=== PATIENT | female | born 1955 | race African-American/Black ===

== ENCOUNTER 2017-04-13 00:27 | Inpatient (IN) | payer OTHER, SELFPAY ==
[2017-04-13] MEDS ORDERED: levETIRAcetam In NaCl (Iso-Os) 1,000 MG in Premix Bag 1 BAG IVPB SCH ×2 (01:15)
[2017-04-13 01:32] LABS: Hemoglobin 12.6 g/dL (12.0-16.0); Mean Corpuscular HGB CONC 33.2 g/dL (32.0-36.0); Mean Corpuscular Hemoglobin 30.9 pg (27.0-31.0); Mean Corpuscular Volume 93.2 fl (81.0-99.0); RBC Distribution Width 11.6 % (11.5-14.5); Red Blood Cell (RBC) Count 4.06 mill/uL (4.20-5.40); White Blood Cell (WBC) Count 3.3 thou/uL (4.8-10.8)
[2017-04-13 01:37] LABS: Mean Platelet Volume 10.4 fL (7.4-10.4); Platelet Count 142 thou/uL (130-400)
[2017-04-13 01:40] LABS: Bilirubin Negative (Negative); Blood, Urine Negative (Negative); Clarity CLEAR (Clear); Glucose, Urine (Dipstick) Negative (Negative); Leukocyte Negative (Negative); Nitrite Negative (Negative); Protein, Urine (Dipstick) Negative (Neg-Trace); Specific Gravity, Urine 1.012 (1.002-1.036); Urobilinogen 0.2 mg/dL (0.2-1.0); pH, Urine 7.5 (5.0-9.0)
[2017-04-13 01:46] LABS: ALT (SGPT) 12 U/L (8-55); AST (SGOT) 19 U/L (5-34); Albumin 4.1 g/dL (3.4-4.8); Alkaline Phosphatase 79 U/L (40-150); Anion Gap 13 mmol/L (10-20); BUN (Urea Nitrogen) 14 mg/dL (9.8-20.1); Bilirubin, Total 0.3 mg/dL (0.2-1.2); Calc. Creatinine Clearance 0 mL/min (70-130); Calcium 9.1 mg/dL (7.8-10.44); Carbon Dioxide 25 mmol/L (23-31); Chloride 108 mmol/L (98-107); Estimated GFR-MDRD 62; Globulin 2.8 g/dL (2.4-3.5); Glucose 89 mg/dL (80-115); Potassium 3.9 mmol/L (3.5-5.1); Protein, Total 6.9 g/dL (6.0-8.3); Sodium 142 mmol/L (136-145)
[2017-04-13 01:48] LABS: Acetaminophen Less than 6.0 mcg/mL (10.0-30.0); Alcohol Less than 10 mg/dL (Less than 10); Lipase 34 U/L (8-78); Salicylate Less than 8.0 mg/dL (15.0-30.0)
[2017-04-13 01:49] LABS: Amphetamine Not Detected (NotDetected); Barbiturates Screen Not Detected (NotDetected); Benzodiazepine Screen Not Detected (NotDetected); Cocaine Metabolite Screen Not Detected (NotDetected); Medtox Control Line Valid? VALID (VALID); Medtox Reader # READER 4; Methadone Not Detected (NotDetected); Methamphetamine Not Detected (NotDetected); Opiate Screen Not Detected (NotDetected); Oxycodone Screen Not Detected (NotDetected); Phencyclidine (PCP) Not Detected (NotDetected); THC/Cannabinoid Screen Not Detected (NotDetected); Tricyclic Screen Not Detected (NotDetected)
[2017-04-13 01:51] LABS: Troponin I 0.011 ng/mL (< 0.028)
[2017-04-13 01:54] LABS: Eosinophils 1 % (0-10); Lymphocytes 56 % (21-51); MDiff Complete? YES; Monocytes 10 % (0-10); Neutrophil 33 % (42-75); PLT Morphology Comment Appears Adequate
[2017-04-13] MEDS ORDERED: Acetaminophen 325 MG TAB PO PRN (07:16)
[2017-04-13] MEDS ORDERED: Ondansetron HCl/PF 4 MG/2 ML Vial IVP PRN (07:16)
--- NOTE | 2017-04-13 07:40 | RAD ---
CHEST PORTABLE SUPINE: Date: 04/13/17 HISTORY: 61-year-old female with history of new onset seizure. FINDINGS: There is cardiomegaly with some mild bilateral vascular congestion. No confluent pneumonia or pleural effusion. IMPRESSION: Cardiomegaly with bilateral vascular congestion without confluent pneumonia. POS: [facility]
--- NOTE | 2017-04-13 07:45 | HP ---
PRIMARY CARE PROVIDER: [facility] call admission for [facility]. CHIEF COMPLAINT: Referred to the [facility] Hospitalist Service from [facility] for new onset of seizures. HISTORY OF PRESENT ILLNESS: The patient is sluggish, difficult history. Apparently had a witnessed seizure, has been given IV anti-seizure medicines. She is grossly oriented. The only symptomatology I can get from her right now is that she is dizzy and has a little blurred vision and has a little s hortness of breath. PAST MEDICAL HISTORY: Pertinent for hypertension and glaucoma, currently on no medications. PAST SURGICAL HISTORY: Pertinent for sinus surgery in the past. ALLERGIES: ERYTHROMYCIN. FAMILY HISTORY: She has a daughter that had febrile seizures as a small child. SOCIAL HISTORY: She is , nonsmoker, nonalcohol user. No illicit drugs. Works with [employer]. REVIEW OF SYSTEMS: GENERAL: Dizziness, no fever, chills or sweats. No headaches. EYES: Some blurred vision, but no double vision or flashing lights. ENT: No ear pain or drainage. No nasal bleeding. No trouble swallowing. CARDIAC: No chest pain, orthopnea or paroxysmal nocturnal dyspnea. RESPIRATORY: No cough, wheezing or asthma, but she states she had some shortness of breath last day, I really could not figure out what that meant. GASTROINTESTINAL: She had nausea with present illness. No vomiting. No abdominal pain, diarrhea. GENITOURINARY: No hematuria, dysuria or nocturia. NEUROLOGICAL: She states she had a seizure about 20 years ago. No strokes. PSYCHIATRIC: No anxiety, depression. SKIN: No bruising, bleeding or rash. HEME/LYMPH: No tender or swollen lymph nodes in axilla, inguinal or cervical area. PHYSICAL EXAMINATION: GENERAL: The patient is sedated and grossly oriented, in no distress. VITAL SIGNS: Blood pressure 143/73, pulse 81, respirations 18, temperature 97.2. HEENT: Reveal pupils equal, round, and reactive to light. Extraocular movements are intact. Sclera e white. Tympanic membranes are clear. Nose is clear. Throat is clear. NECK: Supple, without jugular venous distention, adenopathy or thyromegaly. CHEST: Clear to auscultation and percussion. HEART: Heart had a regular rate and rhythm. First and second heart sounds are clear. There are no appreciated murmurs or gallops. ABDOMEN: Soft, bowel sounds are normal. There is no hepatosplenomegaly, no mass, no rebound, no bru its. EXTREMITIES: Reveal no cyanosis, clubbing or edema. PULSES: Carotid, radial, femoral, and dorsalis pedis pulses intact and symmetric. SKIN: Warm and dry without bruises or rash. HEME/LYMPH: No tender or swollen lymph nodes in axilla, inguinal or cervical area. NEUROLOGIC: Cranial nerves II-XII are intact. Deep tendon reflexes symmetric. Toes downgoing. Gri p strength normal bilaterally. Flexor extensor of the foot normal bilaterally. Sbrdee-rtku-xwkrrs g rossly normal bilaterally. X-RAY FINDINGS: CT of the brain reviewed by me, no acute intracranial process, specifically I see no hemorrhage. Chest x-ray: No cardiomegaly, CHF or infiltrate, reviewed by me. LABORATORY: Toxicology screen negative. Comp metabolic profile; chloride 108, otherwise normal. Tr oponin normal. Prolactin elevated at 45. Hematology: White count 3.3, hemoglobin 12.6, platelet co unt 142,000. She had an absolute increase in lymphocyte count compared to neutrophils. ADMITTING DIAGNOSES: 1. New onset of seizure disorder witnessed with elevated prolactin. CT is negative. The patient islas s been started on anti-seizure medicines IV, will be continued p.o. 2. History of hypertension, not treated. 3. History of glaucoma, not treated. PLAN: Move to Stroke Unit, q.4 hours neuro checks and vital signs, consult Neurology, continue anti- seizure medicines, MRI of the brain, EEG, close followup.
--- NOTE | 2017-04-13 08:15 | CT ---
PRELIMINARY REPORT/[facility]/EMERGENCY AFTER HOURS PROCEDURE: EXAM: CT Head Without Intravenous Contrast CLINICAL HISTORY: 61 years old, female; Signs and symptoms; Syncope and collapse; Patient HX: S/P seizure TECHNIQUE: Axial computed tomography images of the head/brain without intravenous contrast. COMPARISON: No relevant prior studies available. FINDINGS: Brain: Mild volume loss No hemorrhage. No significant white matter disease. No edema. Ventricles: Unremarkable. No ventriculomegaly. Bones/joints: Unremarkable. No acute fracture. Soft tissues: Unremarkable. Sinuses: Unremarkable as visualized. No acute sinusitis. Mastoid air cells: Unremarkable as visualized. No mastoid effusion. IMPRESSION: No intracranial hemorrhage.Please see discussion above. Thank you for allowing us to participate in the care of your patient. Dictated and Authenticated by: Jones Vargas MD 04/13/2017 1:10 AM Central Time ([place] & [place]) FINAL REPORT HEAD CT WITHOUT CONTRAST: Date: 04/13/17 COMPARISON: None. HISTORY: New onset seizure, syncope and collapse. FINDINGS: I agree with the preliminary report given by Tai. The imaged paranasal sinuses and mastoid air cells are well aerated. There is no displaced calvarial fracture. There is no intracranial hemorrhage, mid line shift, mass effect, or ventricular enlargement. IMPRESSION: No acute findings. If there is clinical concern for seizure focus, follow-up brain MRI suggested. POS: [facility]
[2017-04-13] MEDS ORDERED: Gadobenate Dimeglumine 529 MG/1 ML (20ML VIAL) ONE (15:47)
--- NOTE | 2017-04-13 16:17 | MRI ---
BRAIN MRI WITH AND WITHOUT CONTRAST: Date: 04-13-17 Comparison: None. History: 61-year-old female with new onset of seizures. Technique: Multiplanar, multisequence MR imaging of the brain obtained with and without contrast. FINDINGS: The diffusion weighted imaging demonstrates no evidence for acute infarction. Coronal gradient echo imaging demonstrates no evidence for blooming artifact to suggest intracranial hemorrhage or abnormal calcification. Imaged paranasal sinuses/mastoid air cells are within normal limits. Arterial flow voids at the axial level of the skull base appear unremarkable on the T2 weighted imagi ng. The post contrast imaging demonstrates no abnormal enhancement within the brain parenchyma. Coronal i maging demonstrates symmetric and normal size, structure and signal intensity in the region of bilate ral hippo campi. There are a few scattered foci of increased T2/FLAIR signal within the periventricular, deep, and sub cortical white matter suggesting mild small vessel disease. Regional bone marrow signal intensity marie ears within normal limits. IMPRESSION: No acute findings. POS: [facility]
[2017-04-13] MEDS: Sodium Chloride 0.9% 1,000 ML IV SCH ×2 (18:41→20:40)
[2017-04-13] MEDS: levETIRAcetam 500 MG TAB PO SCH (20:40)
[2017-04-14] MEDS ORDERED: hydrALAZINE 20 MG/ML VIAL SLOW IVP PRN (00:24)
--- NOTE | 2017-04-14 02:55 | CON ---
DATE OF CONSULTATION: 04/13/2017 REFERRING PROVIDER: Catie Plaza M.D. REASON FOR CONSULTATION: Seizures. HISTORY OF PRESENT ILLNESS: Ms. Willard is a pleasant 61-year-old -[place] female who has been concerned for evaluation of seizure. The patient reports that she has history of seizures about 20 y ears ago. She had been on seizure medications for few years. She had done well on the medication an d was then later taken off the medication as she was seizure free. She has not had any seizures over the past 24 years. She states that on day before yesterday, she was with her friend and had suddenl y passed out. Her friend had told her that she had a seizure-type episode and who had called the EMS and she was brought to the ER. On arrival to the ER, according to the H&P note, she was noted to be extremely lethargic and drowsy and was not oriented to all 3 modalities. She has not had any seizur es since that time, she states that she has been feeling externally drowsy and sleepy since the admis mil. She denies any headache, chest pain, palpitation, nausea, vomiting, abdominal pain, numbness, tingling or weakness. PAST MEDICAL HISTORY: Significant for hypertension and glaucoma, previous history of seizure disorde r. PAST SURGICAL HISTORY: Significant for sinus surgery. FAMILY HISTORY: Significant for daughter with febrile seizures. SOCIAL HISTORY: She denies smoking, alcohol use, or illicit drug use. She currently works with [employer]. She is . CURRENT MEDICATIONS: Please review MAR. ALLERGIES: Include ERYTHROMYCIN. REVIEW OF SYSTEMS: As mentioned in the HPI, otherwise negative. PHYSICAL EXAMINATION: VITAL SIGNS: Blood pressure of 186/79, pulse of 72, temperature of 98.2, respirations of 16, O2 sats of 95% on room air. GENERAL: Well-developed, well-nourished -G[place]ian female, in no apparent distress. RESPIRATORY: Clear to auscultation bilaterally. CARDIOVASCULAR: Regular rate and rhythm. NEUROLOGIC: Mental status: The patient is awake, alert, oriented x3. Speech and language: Fluent speech. Cranial nerves: Pupils are 3 mm and reactive. Visual alves are intact. External muscles are intact. No nystagmus is noted. Face is symmetric. Tongue and uvula are midline. Motor exam sh owed normal tone and bulk with 5/5 strength in both lower extremities. Sensory: Sensation is intact and symmetric. Deep tendon reflexes 2+ reflexes in both upper and lower extremities. Babinski: Pl sukhdev responses flexion bilaterally. Coordination intact to jlicrj-wxvz-oaqkei tapping bilaterally. LABORATORY DATA: Reviewed, which included CBC, CMP. Prolactin level lipase, urinalysis and urine dr ug screen, which is significant for WBC of 3.3, prolactin level of 45.09, otherwise unremarkable. IMAGING STUDIES: MRI of brain without contrast was reviewed, which showed no acute intracranial abno rmality. IMPRESSION: Generalized tonic-clonic seizure. Ms. Willard is a pleasant 61-year-old -[place]ian f emale, who presented with this seizure-like episode. Given her prior history of seizure disorder. I agree with starting her on Keppra 500 mg b.i.d. I have reviewed her EEG, which showed awake and dayna wsy, normal EEG. There was no epileptiform discharges or seizure-like activity noted. I have counse led her on seizure precautions including no driving for at least 3 months since her last seizure, no operating heavy machinery, no climbing ladders, etc. The patient remains asymptomatic and overnight the patient is going to be discharged to home from neurological standpoint. She will follow up with my clinic in 4 weeks.
[2017-04-14] MEDS: Sodium Chloride 0.9% 1,000 ML IV SCH ×2 (05:08→11:00)
[2017-04-14 05:21] LABS: Anion Gap 9 mmol/L (10-20); BUN (Urea Nitrogen) 9 mg/dL (9.8-20.1); Calc. Creatinine Clearance 113 mL/min (70-130); Calcium 9.1 mg/dL (7.8-10.44); Carbon Dioxide 25 mmol/L (23-31); Chloride 111 mmol/L (98-107); Estimated GFR-MDRD Greater than 90; Glucose 93 mg/dL (80-115); Potassium 3.5 mmol/L (3.5-5.1); Sodium 141 mmol/L (136-145)
[2017-04-14 06:05] LABS: Eosinophils 6 % (0-10); Hemoglobin 12.4 g/dL (12.0-16.0); Lymphocytes 46 % (21-51); MDiff Complete? YES; Mean Corpuscular HGB CONC 31.9 g/dL (32.0-36.0); Mean Corpuscular Hemoglobin 29.8 pg (27.0-31.0); Mean Corpuscular Volume 93.5 fl (81.0-99.0); Monocytes 8 % (0-10); Neutrophil 38 % (42-75); PLT Morphology Comment Appears Adequate; Platelet Count 156 thou/uL (130-400); RBC Distribution Width 11.7 % (11.5-14.5); Red Blood Cell (RBC) Count 4.15 mill/uL (4.20-5.40); White Blood Cell (WBC) Count 3.4 thou/uL (4.8-10.8)
[2017-04-14] MEDS: levETIRAcetam 500 MG TAB PO SCH ×2 (08:54→21:57)
[2017-04-14] MEDS ORDERED: FLU VACC QS2017-18 36 mo. & older 0.5 ML SYRINGE IM ONE (09:00)
--- NOTE | 2017-04-14 14:46 | EEG ---
Referring Physician: Pat JACOB EEG # [id number] TYPE OF TEST: ROUTINE PORTABLE INPATIENT REASON FOR EEG: ALTERED MENTAL STATUS, SEIZURE EEG DESCRIPTION: This is a 21 channel digital EEG recording. Electrodes are placed according to the 10-20 international electrode placement system. The background rhythm is predominately 5-6 hertz, low to medium voltage theta rhythm. The background rhythm does reach 8-9 hertz, low to medium voltage alpha rhythm at times. There is also 14-20 hertz, low voltage, intermittent and diffuse beta rhythm. HYPERVENTILATION: Could not be performed. PHOTIC STIMULATION: Showed no effect. There are no epileptiform discharges, sharp transients or asymmetry noted. EKG LEAD: Shows 60 beats per minute, regular rhythm. IMPRESSION: THIS IS A NORMAL AWAKE AND DROWSY EEG. Obstetric Anaesthetist: ARACELI Academic Advising Director: EEG.MSBakari CURRY
[2017-04-14] MEDS ORDERED: HYDROcodone/Acetaminophen 5/325 mg Tablet PO SCH (16:45)
--- NOTE | 2017-04-14 18:57 | PDOC.PN ---
- Subjective Encounter Start Date: 04/14/17 Encounter Start Time: 18:55 Subjective: Seen and examined c/o headache and dizziness - Objective Resuscitation Status: Resuscitation Status FULL:Full Resuscitation Vital Signs & Weight: Vital Signs (12 hours) Temp Pulse Resp BP Pulse Ox 04/14/17 15:10 97.6 F 77 18 139/63 100 04/14/17 11:08 98.5 F 65 18 150/72 H 98 04/14/17 08:59 98.3 F 67 18 98 04/14/17 07:05 98.3 F 67 18 129/62 99 Weight Weight 186 lb 8 oz I&O: 04/13/17 04/14/17 04/15/17 06:59 06:59 06:59 Intake Total 1890 Balance 1890 Result Diagrams: 04/14/17 04:52 04/14/17 04:52 Phys Exam - Physical Examination Constitutional: NAD HEENT: PERRLA, moist MMs, sclera anicteric, TM's clear Neck: no nodes, no JVD, supple, full ROM Respiratory: no wheezing, no rales, no rhonchi, clear to auscultation bilateral Cardiovascular: RRR, no significant murmur, no rub Gastrointestinal: soft, non-tender, no distention, positive bowel sounds Musculoskeletal: no edema, pulses present Dx/Plan (1) Seizure Code(s): R56.9 - UNSPECIFIED CONVULSIONS Status: Acute (2) Headache Code(s): R51 - HEADACHE Status: Acute (3) Dizziness Code(s): R42 - DIZZINESS AND GIDDINESS Status: Acute - Plan Continue Keppra -: Headache management -: If better tommorrow --d/c home on Keppra * .
--- NOTE | 2017-04-14 19:01 | PDOC.PN ---
- Subjective Encounter Start Date: 04/14/17 Encounter Start Time: 18:58 Subjective: seen and examined no new complaint - Objective Resuscitation Status: Resuscitation Status FULL:Full Resuscitation Vital Signs & Weight: Vital Signs (12 hours) Temp Pulse Resp BP Pulse Ox 04/14/17 15:10 97.6 F 77 18 139/63 100 04/14/17 11:08 98.5 F 65 18 150/72 H 98 04/14/17 08:59 98.3 F 67 18 98 04/14/17 07:05 98.3 F 67 18 129/62 99 Weight Weight 186 lb 8 oz I&O: 04/13/17 04/14/17 04/15/17 06:59 06:59 06:59 Intake Total 1890 Balance 1890 Result Diagrams: 04/14/17 04:52 04/14/17 04:52 Phys Exam - Physical Examination Constitutional: NAD HEENT: PERRLA, moist MMs, sclera anicteric, TM's clear Neck: no nodes, no JVD, supple, full ROM Respiratory: no wheezing, no rales, no rhonchi, clear to auscultation bilateral Cardiovascular: RRR, no significant murmur, no rub Gastrointestinal: soft, non-tender, no distention, positive bowel sounds Musculoskeletal: no edema, pulses present Dx/Plan (1) Seizure Code(s): R56.9 - UNSPECIFIED CONVULSIONS Status: Acute (2) Headache Code(s): R51 - HEADACHE Status: Acute (3) Dizziness Code(s): R42 - DIZZINESS AND GIDDINESS Status: Acute - Plan plan discussed w/ family, PT/OT, social scientist headache management -: dispo next 24hrs * .
[2017-04-15] MEDS: levETIRAcetam 500 MG TAB PO SCH (09:22)
[2017-04-15 12:35] VITALS: BP 152/67; TEMP 98.4
== END 2017-04-15 16:14 | disposition home or self-care (01) | DRG 101 ==
LOC: ERS 00:27 → ERHOLD 02:38 → 2SE 12:43
PROVIDERS: ADMIT Internal Medicine; ATTEND Internal Medicine
DX: G40.909 Epilepsy, unspecified, not intractable, without status epilepticus (principal); H40.9 Unspecified glaucoma; I10 Essential (primary) hypertension; Z82.0 Family history of epilepsy and other diseases of the nervous system; Z88.1 Allergy status to other antibiotic agents
CPT/HCPCS: 36415; 70450; 70553; 71045; 80048; 80053; 80306; 80307; 81003; 82553; 83605; 83690; 84146; 84484; 85025; 90471; 90682; 93005; 94760; 95816; 95819; A4216; A9579; G0008; J1953; Q2036

== ENCOUNTER 2017-04-29 09:00 | Outpatient (CLI) | payer BC | END 2017-04-29 09:01 | disposition home or self-care (01) | LOC: SCSLAB 09:00 → SCSMRI 14:58 | PROVIDERS: ATTEND Family Medicine | DX: G40.89 Other seizures (principal) | CPT/HCPCS: 82565 ==

== ENCOUNTER 2017-09-01 07:55 | Outpatient (CLI) | payer BC ==
--- NOTE | 2017-09-01 12:13 | MRI ---
MRI OF BRAIN WITH AND WITHOUT CONTRAST: TECHNIQUE: Multiplanar, multisequential images of the brain obtained. Postcontrast images were obtained after t he administration of 16 cc MultiHance IV. INDICATION: Left-sided facial droop x 1 month. COMPARISON: Comparison is made to MRI of brain dated 04/13/17. FINDINGS: Ventricles have normal size and position. No evidence of restricted diffusion. No mass or edema. A few tiny scattered white matter hyperintensities are seen on FLAIR sequence, stable from prior exam and probably indicative of minimal ischemic white matter change, not abnormal in a patient of this ag e. The intracranial internal carotid arteries and proximal cerebral arteries and basilar artery show nor mal flow volumes. The dural venous sinuses are patent. No abnormal enhancement identified. The 7th and 8th cranial nerves are seen and appear unremarkable within the internal auditory canal. Some mild mucosal edema in the right mastoids. Paranasal sinuses appear clear. IMPRESSION: Unremarkable MRI of brain. If persistent Neil's palsy is suspected as an etiology for the left facia l paralysis, a dedicated MRI of the facial nerve could be performed with and without contrast if kendrick cated. POS: [facility]
[2017-09-02 08:34] LABS: Estimated GFR-MDRD - POC Greater than 90
== END 2017-09-01 07:56 | disposition home or self-care (01) ==
LOC: SCSMRI 07:55
PROVIDERS: ATTEND Family Medicine
DX: R29.810 Facial weakness (principal)
CPT/HCPCS: 70553; 82565

== ENCOUNTER 2018-06-29 12:47 | Outpatient (CLI) | payer BC ==
--- NOTE | 2018-06-30 11:57 | MMO ---
Bilateral MAMMO Bilat Screen DDI. CLINICAL HISTORY: Patient is 62 years old and is seen for screening. The patient has the following family history of breast cancer: maternal aunt, malignant (generic), PASSED AT 42. The patient has no personal history of cancer. VIEWS: The views performed were: bilateral craniocaudal and bilateral mediolateral oblique. FILMS COMPARED: The present examination has been compared to a prior imaging study performed at [facility] on 07/26/2016. This study has been interpreted with the assistance of computer-aided detection. MAMMOGRAM FINDINGS: There are scattered fibroglandular densities. There are no suspicious masses, suspicious calcifications, or new areas of architectural distortion. IMPRESSION: THERE IS NO MAMMOGRAPHIC EVIDENCE OF MALIGNANCY. A ROUTINE FOLLOW-UP MAMMOGRAM IN 1 YEAR IS RECOMMENDED. ACR BI-RADS Category 1 - Negative MAMMOGRAPHY NOTE: 1. A negative mammogram report should not delay a biopsy if a dominant of clinically suspicious mass is present. 2. Approximately 10% to 15% of breast cancers are not detected by mammography. 3. Adenosis and dense breasts may obscure an underlying neoplasm.
== END 2018-06-29 12:48 | disposition home or self-care (01) ==
LOC: SCSMAMMO 12:47
PROVIDERS: ATTEND Family Medicine
DX: Z12.31 Encounter for screening mammogram for malignant neoplasm of breast (principal); Z80.3 Family history of malignant neoplasm of breast
CPT/HCPCS: 77067